=== PATIENT | female | born 2005 | race Caucasian/White ===

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

== ENCOUNTER 2023-11-30 21:35 | Emergency (ER) | payer OTHER ==
[~2023-11-30] VITALS: Ht 165.1 cm; Wt 47.6 kg
[~2023-11-30 21:35] MED LIST: NAPR-337 PO
[2023-11-30 21:55] VITALS: BP 110/80; PULSE 76; RESP 15; TEMP 98.2; O2SAT 98
[2023-11-30 22:05] VITALS: O2SAT 100
[2023-11-30 22:24] VITALS: O2SAT 100
[2023-11-30] MEDS: LIDOCAINE MPF 1% 10 MG/ML VIAL INJ ONE (23:10)
[2023-11-30 23:39] LABS: BASOPHILS % (AUTO) 0.2 % (0.0-2.0); HEMATOCRIT 35.4 % (36-48); HEMOGLOBIN 12.1 g/dL (12.0-16.0); LYMPHOCYTES % (AUTO) 7.9 % (20.5-51.1); MEAN CORPUSCULAR HEMOGLOBIN 29 pg (27-31); MEAN CORPUSCULAR HGB CONC 34 g/dL (33-37); MEAN CORPUSCULAR VOLUME 83.5 fL (80-94); MONOCYTES # (AUTO) 0.6 K/uL (0.8-1.0); MONOCYTES % (AUTO) 5.1 % (1.7-9.3); NEUTROPHILS # (AUTO) 10.6 K/uL (1.8-7.7); NEUTROPHILS % (AUTO) 86.8 % (42.2-75.2); PLATELET COUNT (AUTO) 273 K/uL (140-450); RED BLOOD CELL COUNT(AUTO) 4.24 MIL/uL (4.20-5.40); RED CELL DISTRIBUTION WIDTH 14.4 % (11.6-13.7); WHITE BLOOD COUNT (AUTO) 12.2 K/uL (4.5-11.0)
== END 2023-12-01 00:20 | disposition home or self-care (01) ==
LOC: MED 21:35
DX: S01.111A Laceration without foreign body of right eyelid and periocular area, initial encounter (principal); R55 Syncope and collapse; J45.909 Unspecified asthma, uncomplicated; Z79.899 Other long term (current) drug therapy; W01.198A Fall on same level from slipping, tripping and stumbling with subsequent striking against other object, initial encounter; Y92.89 Other specified places as the place of occurrence of the external cause; Y93.89 Activity, other specified; Y99.8 Other external cause status
CPT/HCPCS: 12011; 36415; 85025; 93005; 99284; J2001

== ENCOUNTER 2023-12-11 16:11 | Emergency (ER) | payer OTHER ==
[~2023-12-11] VITALS: Ht 167.6 cm; Wt 45.4 kg
[2023-12-11 16:13] VITALS: BP 122/76; PULSE 70; RESP 16; TEMP 98.3; O2SAT 98
[2023-12-11 16:35] VITALS: BP 122/76; PULSE 70; RESP 16; TEMP 98.3; O2SAT 98
== END 2023-12-11 16:37 | disposition home or self-care (01) ==
LOC: MED 16:11
DX: S01.111D Laceration without foreign body of right eyelid and periocular area, subsequent encounter (principal); Z48.02 Encounter for removal of sutures; J45.909 Unspecified asthma, uncomplicated; Z79.899 Other long term (current) drug therapy; X58.XXXD Exposure to other specified factors, subsequent encounter
CPT/HCPCS: 99282